=== PATIENT | female | born 1985 | race Caucasian/White ===

== ENCOUNTER → 2016-12-30 | Outpatient (CLI) | payer OTHER ==
[2016-12-30 10:46] LABS: HEMOGLOBIN 12.6 gm/dl (12.3-15.3); RED BLOOD COUNT 4.34 M/UL (4.00-5.10); WHITE BLOOD COUNT 4.8 K/UL (4.5-11.0)
[2016-12-30 11:04] LABS: BUN/CREATININE RATIO 35 (0-10)
== END ==
LOC: LAB 10:09
PROVIDERS: Internal Medicine
DX: Z00.00 Encounter for general adult medical examination without abnormal findings (principal); R53.83 Other fatigue; J30.9 Allergic rhinitis, unspecified; J45.20 Mild intermittent asthma, uncomplicated; R21 Rash and other nonspecific skin eruption
CPT/HCPCS: 36415; 80053; 80061; 82607; 84439; 84443; 85025